=== PATIENT | male | born 1960 | race Caucasian/White ===

== ENCOUNTER 2017-08-18 17:35 | Emergency (ER) | payer OTHER ==
[~2017-08-18] VITALS: Ht 188 cm; Wt 97.5 kg
[~2017-08-18 17:35] MED LIST: COLACE100 MG PO; KEFLEX500 MG PO; NOHOMEMEDICATIONS; NORCO 10-325 T1 EACH PO; TYLENOL325 MG PO; XARELTO10 MG PO
[2017-08-18] MEDS ORDERED: TRAMADOL 50 MG50 MG PO (19:53)
[2017-08-18] MEDS ORDERED: IBUPROFEN 800800 M1 PO (19:54)
== END 2017-08-18 20:15 | disposition home or self-care (01) ==
LOC: ER 17:35
DX: S16.1XXA Strain of muscle, fascia and tendon at neck level, initial encounter (principal); S46.811A Strain of other muscles, fascia and tendons at shoulder and upper arm level, right arm, initial encounter; S39.011A Strain of muscle, fascia and tendon of abdomen, initial encounter; V80.010A Animal-rider injured by fall from or being thrown from horse in noncollision accident, initial encounter; Y93.89 Activity, other specified; Y92.89 Other specified places as the place of occurrence of the external cause; Y99.8 Other external cause status